=== PATIENT | female | born 1985 | race Caucasian/White ===

== ENCOUNTER 2019-04-05 11:15 | Emergency (ER) | payer MEDICAID ==
[~2019-04-05] VITALS: Ht 157.5 cm; Wt 71.0 kg
[~2019-04-05 11:15] MED LIST: FERR-116; PRENATAL ONE T1 EACH PO
[2019-04-05 11:21] VITALS: BP 121/86
[2019-04-05 11:34] LABS: CLARITY,URINE CLOUDY (Clear); COLOR,URINE YELLOW (Yellow); GLUCOSE, URINE NEGATIVE (Neg); KETONES,URINE TRACE mg/dl (Neg); LEUKOCYTE ESTERASE ,URINE MODERATE (Neg); NITRITES, URINE POSITIVE (Neg); OCCULT BLOOD,URINE NEGATIVE (Neg); PROTEIN,URINE NEGATIVE (Neg)
[2019-04-05 11:44] LABS: UA COLLECTION TYPE CLN CATCH MIDSTREAM
[2019-04-05 11:46] LABS: BACTERIA,URINE 4+ /HPF (Neg); MUCUS STRANDS NONE SEEN /LPF (Neg); RBC,URINE NONE SEEN /HPF (0-2); SQUAMOUS EPITHELIAL CELL,UR MODERATE /LPF (FEW); WBC,URINE 20-30 /HPF (0-4)
== END 2019-04-05 13:01 | disposition home or self-care (01) ==
LOC: ER 11:16
DX: O23.591 Infection of other part of genital tract in pregnancy, first trimester (principal); N89.8 Other specified noninflammatory disorders of vagina; Z98.890 Other specified postprocedural states; Z3A.01 Less than 8 weeks gestation of pregnancy
CPT/HCPCS: 81001; 87077; 87088; 87186; 99283

== ENCOUNTER 2021-05-28 09:10 | Emergency (ER) | payer MEDICAID ==
[~2021-05-28] VITALS: Ht 157.5 cm; Wt 76.4 kg
[2021-05-28 10:02] VITALS: BP 112/78
[2021-05-28] MEDS ORDERED: acetaminophen 325mg tablet PO ONE (10:45)
[2021-05-28 11:42] LABS: BASOPHILS % (AUTO) 0.4 % (0-1); EOSINOPHILS % (AUTO) 0 % (0-6); HEMATOCRIT 35.6 % (35.0-45.0); HEMOGLOBIN 12.5 g/dl (12.0-16.0); LYMPHOCYTES # (AUTO) 0.7 X10'3 (1.1-4.8); LYMPHOCYTES % (AUTO) 14.3 % (21-51); MEAN CORPUSCULAR HEMOGLOBIN 29.5 PG (27.0-31.0); MEAN CORPUSCULAR VOLUME 84.3 FL (78-98); MEAN PLATELET VOLUME 7.3 FL (7.4-10.4); MONOCYTES # (AUTO) 0.2 X10'3 (0-0.9); MONOCYTES % (AUTO) 4.8 % (2-12); NEUTROPHILS # (AUTO) 4.1 X10'3 (1.8-7.7); NEUTROPHILS % (AUTO) 80.5 % (42-75); PLATELET COUNT 219 X10'3 (140-440); RED BLOOD COUNT 4.23 X10'6 (4.20-5.60); RED CELL DISTRIBUTION WIDTH 13.3 % (11.5-14.5)
[2021-05-28 11:58] LABS: ALANINE AMINOTRANSFERASE 23 U/L (12-78); ALBUMIN 3.6 G/DL (3.4-5.0); ALBUMIN/GLOBULIN RATIO 0.8 (1.1-1.5); ALKALINE PHOSPHATASE 49 IU/L (46-116); ANION GAP 12 (8-16); ASPARTATE AMINO TRANSFERASE 28 U/L (10-37); BILIRUBIN,TOTAL 0.4 MG/DL (0.1-1.0); BLOOD UREA NITROGEN 8 MG/DL (7-18); BUN/CREATININE RATIO 11.4 (6.6-38.0); CALCIUM 8.2 MG/DL (8.5-10.1); CHLORIDE 100 MMOL/L (99-107); GLUCOSE 124 MG/DL (70-104); MAGNESIUM 1.8 MG/DL (1.5-2.4); POTASSIUM 3.7 MMOL/L (3.5-5.1); SODIUM 135 MMOL/L (135-145); TOTAL CARBON DIOXIDE 22.9 MMOL/L (24-32); TOTAL PROTEIN 8.3 G/DL (6.4-8.2); eGFR > 90 ML/MIN
[2021-05-28] MEDS ORDERED: AZIT250T27 PO (12:42)
== END 2021-05-28 13:33 | disposition home or self-care (01) ==
LOC: ER 09:11
DX: U07.1 COVID-19 (principal); J12.82 Pneumonia due to coronavirus disease 2019
CPT/HCPCS: 36415; 71045; 80053; 83735; 85025; 99284

== ENCOUNTER 2021-06-01 13:50 | Emergency (ER) | payer MEDICAID ==
[~2021-06-01] VITALS: Ht 157.5 cm; Wt 76.4 kg
[~2021-06-01 13:50] MED LIST changes: +AZIT250T27 PO
[2021-06-01] MEDS ORDERED: LORazepam 2 mg/ml vial IV ONE (14:30)
[2021-06-01 15:26] LABS: BASOPHILS % (AUTO) 0.1 % (0-1); EOSINOPHILS % (AUTO) 0 % (0-6); HEMATOCRIT 32.6 % (35.0-45.0); HEMOGLOBIN 11.4 g/dl (12.0-16.0); LYMPHOCYTES # (AUTO) 0.3 X10'3 (1.1-4.8); LYMPHOCYTES % (AUTO) 6.6 % (21-51); MEAN CORPUSCULAR HEMOGLOBIN 29.4 PG (27.0-31.0); MEAN CORPUSCULAR HGB CONC 34.8 g/dL (33.0-36.5); MEAN CORPUSCULAR VOLUME 84.5 FL (78-98); MEAN PLATELET VOLUME 7.1 FL (7.4-10.4); MONOCYTES # (AUTO) 0.3 X10'3 (0-0.9); MONOCYTES % (AUTO) 5.7 % (2-12); NEUTROPHILS # (AUTO) 4.5 X10'3 (1.8-7.7); NEUTROPHILS % (AUTO) 87.6 % (42-75); PLATELET COUNT 370 X10'3 (140-440); RED BLOOD COUNT 3.86 X10'6 (4.20-5.60); RED CELL DISTRIBUTION WIDTH 12.9 % (11.5-14.5); WHITE BLOOD COUNT 5.1 X10'3 (4.5-11.0)
[2021-06-01] MEDS ORDERED: ketorolac trometh. 30mg/ml inj. IV ONE (15:30)
[2021-06-01] MEDS ORDERED: normal saline 1000ml 1,000 ML IV ONE (15:30)
[2021-06-01 15:34] LABS: D-DIMER 1.74 MG/L FEU (0-0.50)
[2021-06-01 15:39] LABS: ALANINE AMINOTRANSFERASE 25 U/L (12-78); ALBUMIN/GLOBULIN RATIO 0.6 (1.1-1.5); ALKALINE PHOSPHATASE 51 IU/L (46-116); ANION GAP 10 (8-16); ASPARTATE AMINO TRANSFERASE 33 U/L (10-37); BILIRUBIN,TOTAL 0.5 MG/DL (0.1-1.0); BLOOD UREA NITROGEN 9 MG/DL (7-18); BUN/CREATININE RATIO 13.8 (6.6-38.0); CHLORIDE 106 MMOL/L (99-107); CREATININE 0.65 MG/DL (0.40-0.90); GLUCOSE 143 MG/DL (70-104); POTASSIUM 3.3 MMOL/L (3.5-5.1); SODIUM 139 MMOL/L (135-145); TOTAL CARBON DIOXIDE 23.4 MMOL/L (24-32); TOTAL PROTEIN 7.8 G/DL (6.4-8.2); eGFR > 90 ML/MIN
[2021-06-01 15:46] LABS: TROPONIN I < 0.04 NG/ML (0.0-0.05)
--- NOTE | 2021-06-01 16:27 | NUR ---
DAUGHTER "STAR" CALLED [phone]
[2021-06-01] MEDS ORDERED: iohexol 350MG/ML 100ml bottle IV ONE (17:44)
[2021-06-01] MEDS ORDERED: CASIRIVIMAB/IMDEVIMAB inject. 10 ML in normal saline 100ml IV soln 100 ML IV ONE (18:00)
[2021-06-01 19:47] VITALS: BP 117/77
== END 2021-06-01 19:47 | disposition home or self-care (01) ==
LOC: ER 13:51
DX: U07.1 COVID-19 (principal); R06.02 Shortness of breath; Z98.890 Other specified postprocedural states; Z79.2 Long term (current) use of antibiotics
CPT/HCPCS: 36415; 71045; 71275; 80053; 83605; 83880; 84145; 84484; 85025; 85379; 87040; 93005; 96361; 96374; 96375; 99285; J1885; J2060; J7030; M0243; Q0244; Q9967

== ENCOUNTER 2021-11-09 13:03 | Emergency (ER) | payer MEDICAID, OTHER ==
[~2021-11-09] VITALS: Ht 157.5 cm; Wt 77.3 kg
[~2021-11-09 13:03] MED LIST changes: -AZIT250T27 PO
[2021-11-09 13:44] LABS: BASOPHILS # (AUTO) 0.1 X10'3 (0-0.2); BASOPHILS % (AUTO) 0.5 % (0-1); EOSINOPHILS # (AUTO) 0.1 X10'3 (0-0.9); EOSINOPHILS % (AUTO) 1.3 % (0-6); HEMATOCRIT 35.6 % (35.0-45.0); HEMOGLOBIN 11.9 g/dl (12.0-16.0); LYMPHOCYTES # (AUTO) 1.4 X10'3 (1.1-4.8); LYMPHOCYTES % (AUTO) 14.6 % (21-51); MEAN CORPUSCULAR HEMOGLOBIN 28.3 PG (27.0-31.0); MEAN CORPUSCULAR HGB CONC 33.4 g/dL (33.0-36.5); MEAN CORPUSCULAR VOLUME 84.9 FL (78-98); MEAN PLATELET VOLUME 7.6 FL (7.4-10.4); MONOCYTES # (AUTO) 0.5 X10'3 (0-0.9); MONOCYTES % (AUTO) 4.8 % (2-12); NEUTROPHILS # (AUTO) 7.4 X10'3 (1.8-7.7); NEUTROPHILS % (AUTO) 78.8 % (42-75); PLATELET COUNT 314 X10'3 (140-440); WHITE BLOOD COUNT 9.4 X10'3 (4.5-11.0)
[2021-11-09 13:54] LABS: CLARITY,URINE CLOUDY (Clear); COLOR,URINE YELLOW (Yellow); GLUCOSE, URINE NEGATIVE (Neg); KETONES,URINE NEGATIVE (Neg); LEUKOCYTE ESTERASE ,URINE MODERATE (Neg); NITRITES, URINE POSITIVE (Neg); OCCULT BLOOD,URINE SMALL (Neg); PH,URINE 6.5 (4.8-8.0); PROTEIN,URINE NEGATIVE (Neg); UROBILINOGEN,URINE 0.2 E.U/dL (0.2-1.0)
[2021-11-09 14:00] LABS: SQUAMOUS EPITHELIAL CELL,UR MANY /LPF (FEW); UA COLLECTION TYPE CLN CATCH MIDSTREAM
[2021-11-09 14:01] LABS: BACTERIA,URINE 3+ /HPF (Neg); WBC,URINE 20-30 /HPF (0-4)
[2021-11-09 14:02] LABS: RBC,URINE 0-2 /HPF (0-2)
[2021-11-09 14:08] LABS: ALANINE AMINOTRANSFERASE 33 U/L (12-78); ALBUMIN 3.7 G/DL (3.4-5.0); ALBUMIN/GLOBULIN RATIO 0.9 (1.1-1.5); ALKALINE PHOSPHATASE 66 IU/L (46-116); ANION GAP 10 (8-16); ASPARTATE AMINO TRANSFERASE 25 U/L (10-37); BILIRUBIN,TOTAL 0.7 MG/DL (0.1-1.0); BLOOD UREA NITROGEN 7 MG/DL (7-18); BUN/CREATININE RATIO 9.1 (6.6-38.0); CALCIUM 8.3 MG/DL (8.5-10.1); CHLORIDE 105 MMOL/L (99-107); CREATININE 0.77 MG/DL (0.40-0.90); GLUCOSE 106 MG/DL (70-104); POTASSIUM 3.6 MMOL/L (3.5-5.1); SODIUM 139 MMOL/L (135-145); TOTAL CARBON DIOXIDE 24.3 MMOL/L (24-32); TOTAL PROTEIN 7.6 G/DL (6.4-8.2); eGFR 84 ML/MIN
[2021-11-09 14:14] LABS: URINE HCG NEGATIVE (NEG)
[2021-11-09] MEDS ORDERED: CEPH250T PO (14:29)
[2021-11-09 14:32] VITALS: BP 105/67
== END 2021-11-09 14:34 | disposition home or self-care (01) ==
LOC: ER 13:04
DX: N39.0 Urinary tract infection, site not specified (principal); R10.31 Right lower quadrant pain; R50.9 Fever, unspecified; Z79.2 Long term (current) use of antibiotics; Z98.890 Other specified postprocedural states
CPT/HCPCS: 36415; 80053; 81001; 81025; 85025; 99283

== ENCOUNTER 2022-08-01 09:31 | Emergency (ER) | payer BC, MEDICAID ==
[~2022-08-01] VITALS: Ht 160 cm; Wt 77.3 kg
[2022-08-01 10:13] VITALS: BP 118/66
--- NOTE | 2022-08-01 12:34 | NUR ---
Throat swab done and given to label remover.
== END 2022-08-01 13:55 | disposition home or self-care (01) ==
LOC: ER 09:31
DX: J02.9 Acute pharyngitis, unspecified (principal); R05.9 Cough, unspecified; Z98.890 Other specified postprocedural states
CPT/HCPCS: 87081; 87880; 99283

== ENCOUNTER 2022-10-17 20:03 | Emergency (ER) | payer MEDICAID ==
[~2022-10-17] VITALS: Ht 160 cm; Wt 77.3 kg
[2022-10-17 21:22] VITALS: BP 131/80
[2022-10-17 21:42] LABS: CLARITY,URINE SLIGHTLY CLOUDY (Clear); COLOR,URINE YELLOW (Yellow); GLUCOSE, URINE NEGATIVE (Neg); KETONES,URINE NEGATIVE (Neg); LEUKOCYTE ESTERASE ,URINE NEGATIVE (Neg); NITRITES, URINE POSITIVE (Neg); OCCULT BLOOD,URINE TRACE-INTACT (Neg); PROTEIN,URINE 100 mg/dl (Neg); UROBILINOGEN,URINE 0.2 E.U/dL (0.2-1.0)
[2022-10-17 21:45] LABS: UA COLLECTION TYPE CLN CATCH MIDSTREAM; URINE HCG NEGATIVE (NEG)
[2022-10-17 22:20] LABS: BACTERIA,URINE 4+ /HPF (Neg); MUCUS STRANDS FEW /LPF (Neg); RBC,URINE NONE SEEN /HPF (0-2); SQUAMOUS EPITHELIAL CELL,UR FEW /LPF (FEW); TRANSITIONAL EPI CELLS,URINE FEW /HPF
[2022-10-18] MEDS ORDERED: acetaminophen 325mg tablet PO STA (00:20)
[2022-10-18] MEDS ORDERED: SULF1TAB49 PO (01:48)
[2022-10-18] MEDS ORDERED: sulfamethoxazole/trimethoprim DS (800/160mg) tablet PO ONE (01:50)
== END 2022-10-18 02:20 | disposition home or self-care (01) ==
LOC: ER 20:04
DX: N39.0 Urinary tract infection, site not specified (principal); N10 Acute pyelonephritis; Z87.448 Personal history of other diseases of urinary system; Z79.899 Other long term (current) drug therapy
CPT/HCPCS: 81001; 81025; 87077; 87088; 87186; 99283

== ENCOUNTER 2023-09-13 23:20 | Emergency (ER) | payer MEDICAID ==
[~2023-09-13] VITALS: Ht 157.5 cm; Wt 81.8 kg
[~2023-09-13 23:20] MED LIST changes: +PHEN-716 PO
[2023-09-13 23:24] VITALS: BP 137/92; PULSE 72; RESP 16; TEMP 97.6; O2SAT 100
[2023-09-13 23:42] LABS: URINE HCG NEGATIVE (NEG)
[2023-09-14 00:17] LABS: ALANINE AMINOTRANSFERASE 65 U/L (12-78); ALBUMIN 4.1 G/DL (3.4-5.0); ALBUMIN/GLOBULIN RATIO 0.9 (1.1-1.5); ALKALINE PHOSPHATASE 76 IU/L (46-116); ANION GAP 9 (8-16); ASPARTATE AMINO TRANSFERASE 35 U/L (10-37); BILIRUBIN,TOTAL 0.5 MG/DL (0.1-1.0); BLOOD UREA NITROGEN 9 MG/DL (7-18); BUN/CREATININE RATIO 11.3 (10.0-20.0); CALCIUM 9.1 MG/DL (8.5-10.1); CHLORIDE 103 MMOL/L (99-107); GLUCOSE 113 MG/DL (70-104); POTASSIUM 3.7 MMOL/L (3.5-5.1); SODIUM 141 MMOL/L (135-145); TOTAL CARBON DIOXIDE 29.4 MMOL/L (24-32); TOTAL PROTEIN 8.6 G/DL (6.4-8.2); eCRCL 74 ML/MIN; eGFR 79 ML/MIN
[2023-09-14 00:24] LABS: BASOPHILS % (AUTO) 0.5 % (0-1); EOSINOPHILS # (AUTO) 0.2 X10'3 (0-0.9); HEMATOCRIT 36.1 % (35.0-45.0); HEMOGLOBIN 12.4 g/dl (12.0-16.0); LYMPHOCYTES # (AUTO) 2.3 X10'3 (1.1-4.8); LYMPHOCYTES % (AUTO) 30.4 % (21-51); MEAN CORPUSCULAR HEMOGLOBIN 29.8 PG (27.0-31.0); MEAN CORPUSCULAR HGB CONC 34.2 g/dL (33.0-36.5); MEAN CORPUSCULAR VOLUME 87.1 FL (78-98); MEAN PLATELET VOLUME 7.8 FL (7.4-10.4); MONOCYTES # (AUTO) 0.6 X10'3 (0-0.9); MONOCYTES % (AUTO) 8.2 % (2-12); NEUTROPHILS # (AUTO) 4.3 X10'3 (1.8-7.7); NEUTROPHILS % (AUTO) 57.9 % (42-75); PLATELET COUNT 293 X10'3 (140-440); RED BLOOD COUNT 4.15 X10'6 (4.20-5.60); RED CELL DISTRIBUTION WIDTH 13.2 % (11.5-14.5); WHITE BLOOD COUNT 7.4 X10'3 (4.5-11.0)
[2023-09-14 00:33] LABS: BILIRUBIN,URINE NEGATIVE (Neg); CLARITY,URINE CLOUDY (Clear); COLOR,URINE YELLOW (Yellow); GLUCOSE, URINE NEGATIVE (Neg); KETONES,URINE NEGATIVE (Neg); LEUKOCYTE ESTERASE ,URINE TRACE (Neg); NITRITES, URINE POSITIVE (Neg); OCCULT BLOOD,URINE TRACE-LYSED (Neg); PROTEIN,URINE 100 mg/dl (Neg); UROBILINOGEN,URINE 0.2 E.U/dL (0.2-1.0)
[2023-09-14 01:05] LABS: UA COLLECTION TYPE CLN CATCH MIDSTREAM
[2023-09-14 01:11] LABS: BACTERIA,URINE 4+ /HPF (Neg); MUCUS STRANDS FEW /LPF (Neg); RBC,URINE 0-2 /HPF (0-2); SQUAMOUS EPITHELIAL CELL,UR FEW /LPF (FEW); WBC,URINE 30-50 /HPF (0-4)
[2023-09-14] MEDS ORDERED: ceFAZolin 1gm IM kit IM ONE (02:50)
[2023-09-14] MEDS ORDERED: CefTRIAXone 250MG inj IM ONE (02:50)
[2023-09-14] MEDS ORDERED: CEPH-585 PO (02:51)
[2023-09-14] MEDS ORDERED: CefTRIAXone 500MG IM Kit w/LIDOcaine IM ONE (03:00)
[2023-09-14] MEDS: CefTRIAXone 1000mg IM Kit (w/lidocaine diluent) IM ONE (03:20)
== END 2023-09-14 03:22 | disposition home or self-care (01) ==
LOC: ER 23:21
DX: N12 Tubulo-interstitial nephritis, not specified as acute or chronic (principal); Z79.899 Other long term (current) drug therapy
CPT/HCPCS: 36415; 80053; 81001; 81025; 85025; 87077; 87088; 87186; 96372; 99283; J0696; 81003

== ENCOUNTER → 2024-03-04 | Emergency (ER) | payer BC, MEDICAID ==
[~2024-03-04] VITALS: Ht 157.5 cm; Wt 80.9 kg
[~2024-03-04] MED LIST changes: +CEPH-585 PO
[2024-03-04 04:06] LABS: BILIRUBIN,URINE NEGATIVE (Neg); CLARITY,URINE SLIGHTLY CLOUDY (Clear); COLOR,URINE STRAW (Yellow); GLUCOSE, URINE NEGATIVE (Neg); KETONES,URINE NEGATIVE (Neg); LEUKOCYTE ESTERASE ,URINE TRACE (Neg); NITRITES, URINE NEGATIVE (Neg); OCCULT BLOOD,URINE TRACE-INTACT (Neg); PROTEIN,URINE 30 mg/dl (Neg); UROBILINOGEN,URINE 0.2 E.U/dL (0.2-1.0)
[2024-03-04 04:10] LABS: UA COLLECTION TYPE CLN CATCH MIDSTREAM
[2024-03-04 04:13] LABS: BACTERIA,URINE 4+ /HPF (Neg); MUCUS STRANDS NONE SEEN /LPF (Neg); SQUAMOUS EPITHELIAL CELL,UR MODERATE /LPF (FEW)
[2024-03-04 04:14] LABS: RBC,URINE 0-2 /HPF (0-2)
[2024-03-04 04:15] LABS: TRANSITIONAL EPI CELLS,URINE FEW /HPF
[2024-03-04] MEDS: cephalexin 250mg capsule PO ONE (04:57)
[2024-03-04 04:58] VITALS: BP 124/84; PULSE 78; RESP 17; TEMP 98.4; O2SAT 98
== END | disposition home or self-care (01) ==
LOC: ER 02:32
DX: N10 Acute pyelonephritis (principal); Z98.890 Other specified postprocedural states; Z79.2 Long term (current) use of antibiotics; Z79.899 Other long term (current) drug therapy
CPT/HCPCS: 81001; 87077; 87088; 87186; 99283

== ENCOUNTER 2024-05-05 13:54 | Outpatient (CLI) | payer BC, MEDICAID ==
[~2024-05-05 13:54] MED LIST changes: -CEPH-585 PO
== END 2024-05-05 23:59 | disposition home or self-care (01) ==
LOC: MRI 13:54
PROVIDERS: ATTEND Nurse Practitioner Family
DX: M25.562 Pain in left knee (principal); N15.9 Renal tubulo-interstitial disease, unspecified
CPT/HCPCS: 73721; 76770

== ENCOUNTER 2024-09-12 22:24 | Emergency (ER) | payer BC, MEDICAID ==
[~2024-09-12] VITALS: Ht 162.6 cm; Wt 81.4 kg
[2024-09-12 22:26] VITALS: TEMP 99
[2024-09-12 23:34] LABS: BASOPHILS % (AUTO) 0.6 % (0-1); EOSINOPHILS # (AUTO) 0.1 X10'3 (0-0.9); EOSINOPHILS % (AUTO) 1.5 % (0-6); HEMATOCRIT 37.2 % (35.0-45.0); HEMOGLOBIN 12.7 g/dl (12.0-16.0); LYMPHOCYTES # (AUTO) 2.4 X10'3 (1.1-4.8); LYMPHOCYTES % (AUTO) 34.1 % (21-51); MEAN CORPUSCULAR HEMOGLOBIN 29.9 PG (27.0-31.0); MEAN CORPUSCULAR HGB CONC 34.2 g/dL (33.0-36.5); MEAN CORPUSCULAR VOLUME 87.4 FL (78-98); MEAN PLATELET VOLUME 7.7 FL (7.4-10.4); MONOCYTES # (AUTO) 0.4 X10'3 (0-0.9); MONOCYTES % (AUTO) 5.9 % (2-12); NEUTROPHILS # (AUTO) 4.1 X10'3 (1.8-7.7); NEUTROPHILS % (AUTO) 57.9 % (42-75); PLATELET COUNT 386 X10'3 (140-440); RED BLOOD COUNT 4.26 X10'6 (4.20-5.60); RED CELL DISTRIBUTION WIDTH 13.1 % (11.5-14.5); WHITE BLOOD COUNT 7.2 X10'3 (4.5-11.0)
[2024-09-13 00:02] LABS: ALBUMIN 4.3 G/DL (3.4-5.0); ANION GAP 13 (8-16); BLOOD UREA NITROGEN 9 MG/DL (7-18); BUN/CREATININE RATIO 11.1 (10.0-20.0); CALCIUM 8.6 MG/DL (8.5-10.1); CHLORIDE 107 MMOL/L (99-107); CREATININE 0.81 MG/DL (0.40-0.90); ETHANOL 210 MG/DL (<10); GLUCOSE 112 MG/DL (70-104); POTASSIUM 3.4 MMOL/L (3.5-5.1); SODIUM 145 MMOL/L (135-145); THYROID STIMULATING HORMONE 0.84 ulU/ml (0.34-4.50); TOTAL CARBON DIOXIDE 24.8 MMOL/L (24-32); eCRCL 79 ML/MIN; eGFR 78 ML/MIN
[2024-09-13] MEDS: LORazepam 1 MG tablet PO ONE (01:07)
[2024-09-13] MEDS: ibuprofen tablet 400 MG TABLET PO ONE (01:07)
[2024-09-13] MEDS: potassium Cl 20 mEq SR tablet PO STA (01:07)
[2024-09-13 01:13] LABS: URINE HCG NEGATIVE (NEG)
[2024-09-13 01:23] LABS: URINE AMPHETAMINE SCREEN NEGATIVE (Neg); URINE BARBITUATE SCREEN NEGATIVE (Neg); URINE BENZODIAZEPINES SCREEN NEGATIVE (Neg); URINE CANNABINOID SCREEN NEGATIVE (Neg); URINE COCAINE SCREEN NEGATIVE (Neg); URINE METHADONE SCREEN NEGATIVE (Neg); URINE OPIATE SCREEN NEGATIVE (Neg); URINE PHENCYCLIDINE SCREEN NEGATIVE (Neg)
[2024-09-13 01:24] LABS: BILIRUBIN,URINE NEGATIVE (Neg); CLARITY,URINE CLEAR (Clear); COLOR,URINE YELLOW (Yellow); GLUCOSE, URINE NEGATIVE (Neg); KETONES,URINE NEGATIVE (Neg); LEUKOCYTE ESTERASE ,URINE NEGATIVE (Neg); NITRITES, URINE NEGATIVE (Neg); OCCULT BLOOD,URINE TRACE-INTACT (Neg); PROTEIN,URINE NEGATIVE (Neg); UROBILINOGEN,URINE 0.2 E.U/dL (0.2-1.0)
[2024-09-13 01:37] LABS: BACTERIA,URINE NONE SEEN /HPF (Neg); RBC,URINE 0-2 /HPF (0-2); SQUAMOUS EPITHELIAL CELL,UR FEW /LPF (FEW); UA COLLECTION TYPE CLN CATCH MIDSTREAM; WBC,URINE 0-4 /HPF (0-4)
[2024-09-13 10:42] VITALS: BP 128/71; PULSE 76; RESP 16; O2SAT 97
== END 2024-09-13 10:45 | disposition home or self-care (01) ==
LOC: EEVIPCON 22:25 → ER 22:25
DX: F79 Unspecified intellectual disabilities (principal); Z20.822 Contact with and (suspected) exposure to COVID-19
CPT/HCPCS: 36415; 80048; 80305; 80320; 81001; 81025; 84443; 85025; 87811; 99284

== ENCOUNTER 2025-04-13 02:25 | Emergency (ER) | payer BC, MEDICAID ==
[~2025-04-13] VITALS: Ht 157.5 cm; Wt 81.3 kg
[2025-04-13 02:27] VITALS: BP 145/85; PULSE 78; TEMP 98.1; O2SAT 100
--- NOTE | 2025-04-13 02:57 | Physician Documentation ---
History of Present Illness ~ Chief Complaint: Urinary Symptoms Stated Complaint: UTI Time Seen by MD: 02:55 Primary Medical Doctor: Juan Corona [facility] Patient presents to the emergency room for evaluation of dysuria over the past 2-3 hours. No fevers. History of urinary tract infections. Medication Reconciliation Allergies: Coded Allergies: No Known Allergies (Unverified , 03/04/24) Scheduled Cephalexin*Monohydrate* (Keflex*), 1 CAP PO Q12H Phenazopyridine HCl (Pyridium), 1 TAB PO Q8H Miscellaneous Medications Ferrous Sulfate (Iron), (Reported) Vit #108/Iron/Fa ( One Tablet), 1 EACH PO, (Reported) Past Medical History Past Medical History: UTI Past Surgical History: other Alcohol Use: None Drug Use: none Physical Exam Vital Signs: Temperature: 98.1, Source: Oral, Heart Rate: 78, Respiratory Rate: 16, BP: 145/85, Pulse Oximetry: 100, Weight: 81.300 Oxygen Flow Rate: 0 Progress Results/Orders Results/Orders Orders - PRANAY JORDAN MD Cephalexin Capsule (Keflex Capsule) (04/13/25 03:50) Cult Urine + [address] (04/13/25 03:49) Completed Orders - PRANAY JORDAN MD Ua W/Microscopic, Cult If Ind (04/13/25 02:39) Vital Signs 04/13/25 04/13/25 02:27 03:18 Temp 98.1 Pulse 78 Resp 16 16 B/P (MAP) 145/85 Pulse Ox 100 O2 Flow Rate 0 Laboratory Tests Test 04/13/25 02:39 Urine Specimen Description Cln catch midstream Urine Color Straw Urine Clarity Slightly cloudy Urine pH 6.5 Urine Specific [place] <=1.005 Urine Protein Trace Urine Glucose (UA) Negative Urine Ketones Negative Urine Occult Blood Moderate H Urine Nitrite Negative Urine Bilirubin Negative Urine Urobilinogen 0.2 Urine Leukocyte Esterase Large H Urine RBC 0-2 Urine WBC 10-20 H Urine WBC Clumps Moderate Urine Squamous Epithelial Cells None seen Urine Bacteria Few Urine Culture Indicated Indicated Volume Urine Centrifuged 10 ml Urine Comment Medical Decision Making Findings Patient presented to the emergency room with dysuria. Differentials include but are not limited to urinary tract infection, interstitial cystitis, fungal infection. Urinalysis shows urinary tract infection we will treat her accordingly. ER precautions discussed. Patient's vitals are stable and I do not feel additional labs are necessary or imaging. Departure Disposition: HOME / SELF CARE / HOMELESS Impression: Primary Impression: Acute urinary tract infection Condition: Stable Discharge Instructions: Urinary Tract Infection, Adult Referrals: NO PRIMARY CARE PROVIDER (PCP) Prescriptions Cephalexin*Monohydrate* (Keflex*) 500 Mg Capsule 1 CAP PO Q12H for 10 Days, #20 CAP Prov: PRANAY JORDAN MD 04/13/25 Signature Scribe Signature: No scribe Attestation: The note accurately reflects work and decisions made by me.Pranay Jordan MD 04/13/25 03:51 PRANAY JORDAN MD Apr 13, 2025 02:57
[2025-04-13 03:18] VITALS: RESP 16
[2025-04-13 03:19] LABS: LEUKOCYTE ESTERASE ,URINE LARGE (Neg); NITRITES, URINE NEGATIVE (Neg); OCCULT BLOOD,URINE MODERATE (Neg)
[2025-04-13 03:43] LABS: UA COLLECTION TYPE CLN CATCH MIDSTREAM
[2025-04-13 03:48] LABS: SQUAMOUS EPITHELIAL CELL,UR NONE SEEN /LPF (FEW); WBC CLUMPS,URINE MODERATE /HPF (NEGATIVE)
[2025-04-13] MEDS ORDERED: CEPH-585 PO (03:50)
== END 2025-04-13 04:36 | disposition home or self-care (01) ==
LOC: ER 02:25
DX: N39.0 Urinary tract infection, site not specified (principal)
CPT/HCPCS: 81001; 87088; 99283